=== PATIENT | male | born 1955 | race Caucasian/White ===

== ENCOUNTER → 2016-07-10 | Outpatient (CLI) | payer BC ==
[~2016-07-10] MED LIST: ALLP300T PO; CETI10TA17 PO; CETI1TAB61 PO; FISH OIL OMEGA1 EACH PO; FOLI400T4 PO; LOSA1TAB15 PO; LOSA1TAB20 PO
--- OUTSIDE RECORDS SUMMARY | 2016-07-10 08:30 | XMS REPORT | Continuity of Care Document ---
Author Author [facility] Organization [facility] Address Unknown Phone Unavailable Care Team Providers Care Ointment Mill Tender Name Role Phone BRYAN VERDE MD PCP Insurance Providers Payer Name Policy Number Subscriber Name Relationship [facility] [id number] Darshan Ralph 16 Self / Same As Patient Advance Directives Directive Response Recorded Date/Time Advance Directives No 11/16/15 7:39am Health Care Power of Financial Solutions Advisor No 11/16/15 7:39am Organ Donor No 11/16/15 7:39am Resuscitation Status Full Code 11/16/15 7:39am Problems No problem information available. Medications Current Home Medications Medication Dose Units Route Directions Days/Qty Instructions Start Date Allopurinol 300 Mg 300 Mg Oral Daily 11/21/11 Folic Acid/Vitamin B Comp W-C 400 Mcg 400 Mcg Oral Daily 11/21/11 Losartan/Hydrochlorothiazide 1 Each 1 Each Oral Daily 11/16/15 Past Home Medications Medication Directions Ordered Status Losartan/Hydrochlorothiazide 1 Each Tablet, 1 Each Oral Daily 11/21/11 Discontinued Cetirizine Hcl/Pseudoephedrine 1 Each Tab.er.12h, 1 Each Oral As Needed 11/20 Discontinued Wayne-3/Dha/Epa/Fish Oil 1 Each Capsule, 1 Each Oral Daily 11/21/11 Discontinued Cetirizine Hcl 10 Mg Tablet, 10 Mg Oral Daily 11/14/15 Discontinued Social History Social History Problem Response Recorded Date/Time Recent Foreign Travel No 11/16/2015 7:38am Recent Infectious Disease Exposure No 11/16/2015 7:38am Smoking Status Never a Smoker 11/16/2015 7:35am Query Response Start Date Stop Date Smoking Status Never a Smoker Hospital Discharge Instructions No hospital discharge instructions. Plan of Care Discharge Date 11/16/15 10:05am Instructions/Education Provided Colonoscopic Polypectomy (DC) Prescriptions See Medication Section Functional Status No functional status results. Allergies, Adverse Reactions, Alerts No known allergies. Immunizations No immunization records. Vital Signs Acute Vital Signs Vital Response Date/Time Temperature (Fahrenheit) 98.3 degrees F (97.6 - 99.5) 11/16/2015 10:05am Temperature (Calculated Celsius) 36.44774 degrees C (36.4 - 37.5) 11/16/2015 10:05am Temperature Source Tympanic 11/16/2015 10:05am Pulse Rate (adult) 72 bpm (60 - 90) 11/16/2015 10:05am Respiratory Rate 18 bpm (12 - 24) 11/16/2015 10:05am O2 Sat by Pulse Oximetry 92 % (88 - 100) 11/16/2015 10:05am Blood Pressure 144/90 mm Hg 11/16/2015 10:05am Pain Numeric Pain Scale 0-No Pain 11/16/2015 10:05am Pain Intensity 0 11/16/2015 9:35am Height (Feet) 6 feet 11/16/2015 7:41am Height (Inches) 2.00 inches 11/16/2015 7:41am Height (Calculated Centimeters) 187.311590 cm 11/16/2015 7:41am Weight (Pounds) 230 pounds 11/16/2015 7:41am Weight (Ounces) 0.0 oz 11/16/2015 7:41am Weight (Calculated Grams) 993246.246 gm 11/16/2015 7:41am Weight (Calculated Kilograms) 104.795402 kilograms 11/16/2015 7:41am Calculated BMI 29.5 11/16/2015 7:41am Results No known relevant diagnostic tests, laboratory data and/or discharge summary. Procedures No known history of procedures. Encounters Encounter Location Arrival/Admit Date Discharge/Depart Date Attending Provider Departed [facility] 11/16/15 6:53am 10:05am RO CARO MD Departed Clinic [facility] 11/14/15 6:22am 11/14/15 1: 04pm RO CARO MD
--- NOTE | 2016-07-10 12:07 | Diagnostic Imaging Report ---
Bilateral renal ultrasound. INDICATION: Chronic kidney disease. There are no prior studies available for comparison. FINDINGS: Both kidneys were identified. The right kidney measures 11.2 x 6.2 x 5.2 CM while left kidney is estimated to be 10.6 x 5.1 x 4.5 CM. There is no evidence for solid renal mass or for hydronephrosis of either kidney. The renal cortices are normal in thickness and echogenicity. There may be a small subcentimeter cyst in the midportion of the left kidney. There is no shadowing from the kidneys to suggest nephrolithiasis. The bladder was only partially filled and consequently not well evaluated. Both ureteral jets were noted. IMPRESSION: 1. There is no evidence for solid renal mass or for an acute abnormality of either kidney. 2. The renal cortices are normal in thickness and echogenicity. 3. The bladder was not well-evaluated. Dictated by: Dictated on workstation # [id number]
== END ==
LOC: RAD 08:27
PROVIDERS: ATTEND Nurse Practitioner
DX: R80.9 Proteinuria, unspecified (principal); I12.9 Hypertensive chronic kidney disease with stage 1 through stage 4 chronic kidney disease, or unspecified chronic kidney disease; N18.3 Chronic kidney disease, stage 3 (moderate); M10.9 Gout, unspecified; E11.9 Type 2 diabetes mellitus without complications; E78.5 Hyperlipidemia, unspecified
CPT/HCPCS: 76770

== ENCOUNTER 2019-02-08 13:50 | Outpatient (CLI) | payer MEDICARE ==
[~2019-02-08] VITALS: Ht 187 cm; Wt 120.4 kg
[~2019-02-08 13:50] MED LIST changes: +ALLO300T2 PO; +CETI10TA20 PO; +LOSA100T57 PO; +METO-370 PO; +MULT-1029 PO
== END 2019-02-08 14:22 | disposition home or self-care (01) ==
LOC: PREOP 13:50
PROVIDERS: ATTEND Internal Medicine
DX: Z01.818 Encounter for other preprocedural examination (principal)

== ENCOUNTER → 2021-12-18 | Outpatient (CLI) | payer MEDICARE, OTHER ==
[~2021-12-18] VITALS: Ht 188 cm; Wt 116.1 kg
[~2021-12-18] MED LIST changes: -CETI10TA20 PO; +CETI10TA49 PO; +CYAN250010 PO; +GLBR5T PO; +GLUC100016 PO; -METO-370 PO; +METO50TA7 PO; +NF-VITD400 PO; +VITA100T8 PO
== END | disposition home or self-care (01) ==
LOC: PREOP 05:34
PROVIDERS: ATTEND Internal Medicine
DX: Z01.818 Encounter for other preprocedural examination (principal); C18.9 Malignant neoplasm of colon, unspecified; K63.5 Polyp of colon

== ENCOUNTER 2021-12-27 08:47 | Day surgery (SDC) | payer MEDICARE, OTHER ==
--- NOTE | 2021-12-18 09:14 | HISTORY AND PHYSICAL ---
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 He has past history of colon polyps, last underwent colonoscopy in 2019, at which time he had a tubular adenoma removed from the rectum. He is deemed to be of higher than average risk as there is a family history of colon cancer in his brother, diagnosed at the age of 55 and dad had colectomy, but he believes was for noncancer related reasons, but he is not positive about this. PAST MEDICAL HISTORY: Significant for hypertension. He reports there have been no changes in his health status, no surgery over the past three years with a past history of right arthroscopic knee surgery over 20 years ago now. He reports that he has been feeling well. He has noted no blood in the stool. Denies bowel habit change. Occasionally, has some constipation, no diarrhea. PHYSICAL EXAMINATION: GENERAL: Reveals a white male, appeared to be in no acute distress. VITAL SIGNS: Weight 256 pounds, blood pressure 140/90. HEENT: Unremarkable. CHEST: Clear to auscultation. CARDIOVASCULAR: Reveals regular rate and rhythm without murmur, S3 or S4. ABDOMEN: Soft, supple without mass, organomegaly or tenderness. EXTREMITIES: Reveal no cyanosis, clubbing or edema. ASSESSMENT AND PLAN: The patient is being set up for surveillance colonoscopy, previous endoscopy. Electronic medical record reviewed. Prep instructions given and questions answered. I thank you for the referral of this pleasant gentleman. Job ID: [id number] DocumentID: [id number] Dictated Date: 12/11/2021 16:01:57 Senior Financial Reporting Accountant Date: 12/11/2021 16:23:39 Dictated By: RO CARO MD
[~2021-12-27] VITALS: Ht 188 cm; Wt 116.1 kg
[2021-12-27] MEDS ORDERED: LACTATED RINGERS 1,000 ML IV ONE (08:53)
[2021-12-27] MEDS ORDERED: LACTATED RINGERS 1,000 ML IV STA (08:58)
[2021-12-27 09:10] VITALS: BP 169/87
[2021-12-27] MEDS ORDERED: MIDAZOLAM 2 MG/2 ML (VERSED) VIAL ONE (10:02)
[2021-12-27] MEDS ORDERED: PROPOFOL INJECTION 50 ML IV ONE (10:02)
[2021-12-27 10:40] VITALS: BP 134/70
--- NOTE | 2021-12-27 10:40 | Progress Note-Post Operative ---
Post-Procedure Note Physician (s)/Digitizer (s) Physician RO CARO MD Pre-Procedure Diagnosis Pre-Procedure Diagnosis: screening Post-Procedure Diagnosis Post-operative diagnosis: 2 polyps ablated proximal sigmoid and mid transverse otherwise normal colon RO CARO MD Dec 27, 2021 10:40
[2021-12-27 10:45] VITALS: BP 136/71
[2021-12-27 10:50] VITALS: BP 137/70
[2021-12-27 10:55] VITALS: BP 137/70
[2021-12-27 11:32] VITALS: BP 137/70
--- NOTE | 2021-12-27 12:31 | Anesthesia-General Post-Op ---
MAC Patient Condition Mental Status/LOC: Same as Preop Cardiovascular: Satisfactory Nausea/Vomiting: Absent Respiratory: Satisfactory Pain: Controlled Complications: Absent Post Op Complications Complications None Follow Up Care/Instructions Patient Instructions None needed. Anesthesiology Discharge Order Discharge Order Patient is doing well, no complaints, stable vital signs, no apparent adverse anesthesia problems. No complications reported per nursing. ZACHERY HIGGINS CRNA Dec 27, 2021 12:31
--- NOTE | 2021-12-27 13:47 | OPERATIVE REPORT ---
DATE OF SERVICE: COLONOSCOPY SUMMARY INDICATION FOR THE PROCEDURE: History of colon polyps and family history of colon cancer. DESCRIPTION OF PROCEDURE: The patient was placed in the left lateral decubitus position. Prior to undergoing colonoscopy, a digital rectal evaluation was performed. Anal sphincter tone was normal and the perianal reflex was intact. Prostate was unremarkable to digital inspection as was the anal canal and distal rectal vault. The colonoscope was then inserted into the rectum and under direct visualization advanced to the cecum. The cecum was identified by identification of the ileocecal valve and cecal strap. Photographic documentation was obtained. Careful inspection was made as the colonoscope was withdrawn. Quality of prep was good. FINDINGS: There was no evidence for internal or external hemorrhoids and the rectum was unremarkable. Several small proximal sigmoid diverticulum were present without evidence of diverticulitis. Present in the proximal sigmoid colon was a sessile 4 mm polyp. It was photographed and biopsied and ablated with no subsequent blood loss. The splenic flexure was unremarkable. Present in the mid transverse colon was a sessile 5 mm polyp. It was photographed and biopsied and ablated again with no blood loss. Remainder of the transverse colon, hepatic flexure, ascending colon, and cecum were unremarkable. ASSESSMENT: Two sessile polyps were removed, one from the proximal sigmoid, the other from the mid transverse colon with several small sigmoid diverticulum. Otherwise, normal colonoscopy to the cecum. Considering family history, as long as there are no surprises on histopathology report, would advocate consideration for repeat surveillance colonoscopy in three years. I thank you for the referral of this pleasant gentleman. Job ID: [id number] DocumentID: [id number] Dictated Date: 12/27/2021 10:37:06 Outside Repairer Special Date: 12/27/2021 13:47:13 Dictated By: RO CARO MD
== END 2021-12-27 11:37 | disposition home or self-care (01) ==
LOC: ENDO 08:47
PROVIDERS: ATTEND Internal Medicine
DX: Z12.11 Encounter for screening for malignant neoplasm of colon (principal); D12.5 Benign neoplasm of sigmoid colon; K63.5 Polyp of colon; Z80.0 Family history of malignant neoplasm of digestive organs; K57.30 Diverticulosis of large intestine without perforation or abscess without bleeding
CPT/HCPCS: 88305

== ENCOUNTER 2023-02-04 05:34 | Outpatient (CLI) | payer MEDICARE, OTHER ==
[~2023-02-04] VITALS: Ht 188 cm; Wt 114.0 kg
[~2023-02-04 05:34] MED LIST changes: +LOSA-423 PO; -LOSA100T57 PO; +LOSA100T58 PO; -LOSA1TAB15 PO
== END 2023-02-04 09:57 | disposition home or self-care (01) ==
LOC: PREOP 05:34
PROVIDERS: ATTEND Internal Medicine
DX: Z01.818 Encounter for other preprocedural examination (principal)